=== PATIENT | female | born 1950 | race African-American/Black ===

== ENCOUNTER → 2021-08-04 11:56 | Outpatient (CLI) | payer MEDICARE, MEDICAID, SELFPAY ==
--- NOTE | 2021-08-04 | CA_ITS ---
APPROVED REPORT Exam: Pharmacologic Technologist: Selma Ritchie, Ht: 5 ft 11 in Wt: 243 lbs BSA: 2.29 m2 HR: 57 bpm BP: 166/91 mmHg Rhythm: SINUS AGUSTINA, PACS Medical History Medical History: HTN, Hyperlipidemia, Diabetes Medications: Omeprazole,,,,, Levothyroxine,,,,, Aspirin,,,,, Metformin,,,,, Trazadone,,,,, Gabapentin,,,,, Allopurinol,,,,, Atorvastatin,,,,, Metoprolol Succinate,,,,, Albuterol,,,,, Estradiol,,,,, Vit D3,,,,, Allergies: No known drug allergies Cardiac Risk Factors: HTN, Hyperlipidemia, Diabetes , FHX of CAD Stress Test Details Test: LEXISCAN HR Resting HR: 56 bpm Max Heart Rate (APMHR): 147 bpm Max HR Achieved: 99 bpm Target HR (85% APMHR): 124 bpm % of APMHR: 67 Recovery HR: 79 bpm BP Resting BP: 166/91 mmHg Max BP: 166/91 mmHg Recovery BP: 165.0/95.0 mmHg ECG Resting ECG: SINUS AGUSTINA, PACS Clinical Exercise duration: 04:09 min Highest Stage Achieved: Stress ECG Conclusion PT BECAME JITTERY. NO CP NO SIGNIFICANT CHANGES UNREMARKABLE LEXISCAN STRESS MYOVIEW IMAGES REPORTED SEPARATELY Electronically signed by : Omid Fowler MD 08/04/2021 21:10:27
--- NOTE | 2021-08-04 12:20 | NM_ITS ---
APPROVED REPORT Exam: Nuclear Stress Test Indication: Abnormal EKG, HTN, DM, High cholesterol Patient Location: Outpatient Stress Tech: Selma Ritchie [place] Tech:Renée Fair, ARRT, RT (R)(N) Ht: 5 ft 11 in Wt: 245 lbs Bra Size: DD HR: 56 bpm BP: 166/91 mmHg BSA: 2.30 m2 TID: 1.05 BMI: 34.1 History: Abnormal EKG, HTN, DM, High cholesterol Procedure: Patient received a 0.4 mg of intravenous Lexiscan, resting heart rate 56 bpm, resting blood pressure 166/91 mmHg, with Lexiscan maximum heart rate achived was 99 bpm which is Less than 85 % of the maximum predicted heart rate and blood pressure was 166/91 mmHg. With Lexiscan, patient denied any complaint of chest pain. Electrocardiogram Resting electrocardiogram shows sinus rhythm nonspecific ST-T changes, with Lexiscan there is less than 1.[address] segment depression noted from the baseline EKG. The EKG portion of the Lexiscan is nondiagnostic. Cardiac Stress and Resting SPECT Images: Cardiac Stress and Resting SPECT images were obtained using technetium 99m Myoview 32.1 mCi stress and 9.76 mCi at rest. Gated SPECT for analysis of segmental wall motion and calculation of the ejection fraction also done. Cardiac stress and rest SPECT images show uniform myocardial activity without segmental perfusion abnormality, computer derived ejection fraction is 59% with no regional wall motion abnormality, right ventricle is normal size and contractility. Conclusion: 1. The EKG portion of the Lexiscan Myoview study is nondiagnostic. 2. No scintigraphic evidence of reversible ischemia seen, computer derived ejection fraction is 59% with no regional wall motion abnormality, right ventricle is normal size and contractility. 3. Normal Lexiscan Myoview study. Electronically signed by : Omid Fowler MD 08/04/2021 21:12:36
--- NOTE | 2021-08-04 12:24 | CA_ITS ---
APPROVED REPORT EXAM: Comprehensive 2D, Doppler, and color-flow Echocardiogram Catering And Events Manager: Fidelia More CRT Ht: 5 ft 11 in Wt: 245lbs BSA: 2.30 BP: 136/95 mmHg Indications: CVA, HTN, DM, CHF, HLD, PT WHEELCHAIR BOUND, scanned in wheelchair, very limited windows, TDE M-Mode Dimensions LA Diam 2.55 cm (1.9-4.0) LVDd 3.63 cm (3.5-5.7) Ao Diam 4.41 cm (2.0-3.7) LVDs 0.00 cm (3.5-5.7) PWd 0.38 cm (0.6-1.1) EF (Teich) 91.90% FS 63.10% EDV (Teich) 55.50 mL TAPSE 1.66 (<1.7) ESV (Teich) 4.50 mL LV Diastology E Decel Time 227.00 (160-240 msec) E/A Ratio 0.77 MED E' 3.40 (< 7 cm/sec) MED A' 6.30 cm/s E'/MED E' Ratio 17.38 (>14) LAT E' 7.30 (<10 cm/sec) LAT A' 8.50 cm/s E/LAT E' Ratio 8.10 (>14) Aortic Valve AO Peak GR. 7.10 mmHg Mitral Valve MV E Max Herman. 59.00 (40-130 cm/s) MV A Velocity 77.00 (40-130 cm/s) E/A Ratio 0.77 MV Decel. Time 227.00 (160-240 ms) MV PHT 66.00 ms Pulmonary Valve PV Peak Velocity 192.00 (50-150 cm/s) Tricuspid Valve TR P. Velocity 193.00 cm/s Left Ventricle Technically difficult study because of the patient factors and poor acoustic windows. Left atrium is mildly enlarged, left ventricle is normal size, mild concentric left ventricular hypertrophy, estimated ejection fraction 55% with no regional wall motion abnormality, grade 1 diastolic dysfunction seen without tissue Doppler evidence of raise left atrial pressure. Right Ventricle Right atrium and right ventricle are normal size and contractility. Aortic Valve Aortic valve is thickened and calcified without aortic stenosis or aortic insufficiency. Mitral Valve Mitral valve grossly normal, there is trace mitral regurgitation. Tricuspid Valve Tricuspid valve is grossly normal, there is trace tricuspid regurgitation, tricuspid regurgitation jet velocity is inadequate for calculation of the right ventricular systolic pressure. Pulmonic Valve Pulmonic valve is poorly visualized. Great Vessels Aortic root is normal size. Inferior vena cava is normal size with normal spectral collapse. Pericardium No significant pericardial effusion noted. Conclusion 1. Mildly enlarged left atrium, normal left ventricular size, mild concentric left ventricular hypertrophy, estimated ejection fraction 55% with no regional wall motion abnormality, grade 1 diastolic dysfunction seen without tissue Doppler evidence of raise left atrial pressure. 2. Trace mitral and tricuspid regurgitation. 3. No significant pericardial effusion. 4. Inferior vena cava normal size with normal inspiratory collapse. Electronically signed by : Omid Fowler MD 08/04/2021 19:28:00
--- NOTE | 2021-08-04 14:04 | HMH.ITSHM ---
Current Home Medications as stated by this patient Ju Luna or compliance representative dealer. []TRAZODONE SERTALINE OMEPRAZOLE METOPROLOL METFORMIN LEVOTHYROXINE INSULIN GABAPENTIN VITAMIN D3 ESTRADIOL BETHANECHOL BACLOFEN ATORVASTATIN ASA AMLODIPINE ALLOPURINOL ALBUTEROL
== END ==
PROVIDERS: PCP Family Medicine; Visit Provider Physician Assistant
DX: E11.9 Type 2 diabetes mellitus without complications (principal); E78.5 Hyperlipidemia, unspecified; I10 Essential (primary) hypertension; Z86.73 Personal history of transient ischemic attack (TIA), and cerebral infarction without residual deficits; R94.31 Abnormal electrocardiogram [ECG] [EKG]; Z79.4 Long term (current) use of insulin
CPT/HCPCS: 78452; 93017; 93306; A9502; J2785